=== PATIENT | female | born 1960 | race Two or more races ===

== ENCOUNTER 2017-10-22 08:20 | Day surgery (SDC) | payer SELFPAY ==
[2017-10-22] MEDS ORDERED: Lactated Ringer's 1,000 ML IV ONE (08:39)
[2017-10-22] MEDS ORDERED: Propofol 10 mg/ml Inj (20 ML) ONE (10:52)
[2017-10-22] MEDS ORDERED: Midazolam 2 MG/2 ML VIAL ONE (10:52)
[2017-10-22 11:37] VITALS: O2SAT 99
[2017-10-22 11:56] VITALS: BP 121/82; PULSE 76; RESP 13; TEMP 97
== END 2017-10-22 13:00 | disposition home or self-care (01) ==
LOC: H.ENDO 08:20
PROVIDERS: ATTEND Internal Medicine Gastroenterology
DX: Z12.11 Encounter for screening for malignant neoplasm of colon (principal); I10 Essential (primary) hypertension; K57.30 Diverticulosis of large intestine without perforation or abscess without bleeding; K64.8 Other hemorrhoids
CPT/HCPCS: 45378; J2250; J2704; J7120